=== PATIENT | male | born 1985 ===

== ENCOUNTER 2022-04-19 10:22 | Emergency (ER) | payer OTHER ==
[~2022-04-19] VITALS: Ht 170 cm; Wt 81.6 kg
--- NOTE | 2022-04-19 11:07 | ED Upper Extremity ---
General Chief Complaint: Upper Extremity Nursing Triage Note: PT BROUGHT BY FLIGHT FOLLOWER FOR ASSESSMENT OF LEFT HAND POINTER FINGER. PT WAS PICKING UP A 200LB METAL PIECE AT WORK WHEN IT SLIPPED AND PINCHED HIS FINGER BETWEEN ANOTHER PIECE OF METAL. PT AMB. TO ROOM 07 WITH GAUZE ON FINGER. BLEEDING CONTROLLED. Source: patient Exam Limitations: no limitations History of Present Illness Date Seen by Provider: Apr 19, 2022 Time Seen by Provider: 10:55 Initial Comments 36-year-old male who is otherwise healthy presents for left index finger injury. He states he was picking up a piece of metal when it slipped and pinched his finger between another piece of metal on that. He denies any other injury. He was seen at a walk-in clinic prior to arrival and his tetanus was updated at that time. Allergies and Home Medications Patient Home Medication List Home Medication List Reviewed: Yes Review of Systems Constitutional: no symptoms reported EENTM: no symptoms reported Respiratory: no symptoms reported Cardiovascular: no symptoms reported Gastrointestinal: no symptoms reported Genitourinary: no symptoms reported Musculoskeletal: joint pain Skin: other (Left index finger nail injury) Psychiatric/Neurological: No Symptoms Reported Past Djtwfqu-Suykff-Yfatsc Hx Patient Social History Tobacco Use?: No Substance use?: No Alcohol Use?: No Pt feels they are or have been: No Past Medical History Surgery/Hospitalization HX: DENIES SURGERY AND PMH. Family Medical History Reviewed Nursing Family Hx Physical Exam Vital Signs Vital Signs - First Documented 04/19/22 10:34 Temp 35.2 Pulse 60 Resp 18 B/P (MAP) 136/102 (113) Pulse Ox 97 O2 Delivery Room Air Capillary Refill : Less Than 3 Seconds Height, Weight, BMI Height: '" Weight: lbs. oz. kg; 28.00 BMI Method: General Appearance: WD/WN, no apparent distress Neck: non-tender, supple Cardiovascular: regular rate, rhythm, no murmur Respiratory: chest non-tender, lungs clear, normal breath sounds Wrist: Yes normal inspection, Yes non-tender, Yes no evidence of injury Hand: soft tissue tenderness (Soft tissue tenderness at the distal aspect of the left index finger. At the base of the nail there is an avulsion. No obvious nailbed injury. There is a small lateral laceration to the area, subcentimeter. Neurovascular motor and sensory intact. Tendon function does appear to be intact as well) Neurologic/Psychiatric: alert, normal mood/affect, oriented x 3 Skin: warm/dry Progress/Results/Core Measures Results/Orders My Orders Orders - JOSE MIGUEL THOMAS DO Hand, Left, 3 Views (04/19/22 11:13) Vital Signs/I&O 04/19/22 10:34 Temp 35.2 Pulse 60 Resp 18 B/P (MAP) 136/102 (113) Pulse Ox 97 O2 Delivery Room Air Blood Pressure Mean: 113 Departure Communication (Admissions) Is a very slight avulsion of the proximal end of the nail base. There is no obvious damage to the matrix or nailbed. Neurovascular and sensory intact. X- ray shows fracture of the distal phalanx, tuft fracture. This is a work comp injury. Drug screen performed per protocol and pending. Discharged home with a splint and orthopedic follow-up. Did primary counselor extensively on if there is nailbed injury that was not identified that the nail might not go back he may lose his current nail. He states understanding. Impression Primary Impression: Phalanx, distal fracture of finger Qualified Codes: S62.631B - Displaced fracture of distal phalanx of left index finger, initial encounter for open fracture Disposition: HOME, SELF-CARE Condition: Stable Departure-Patient Inst. Referrals: [facility]/ (PCP) Primary Care Physician Patient Instructions: Finger Fracture ED Add. Discharge Instructions: Keep the splint in place. Follow-up with your doctor as recommended. Your nail may fall off or a new nail may grow underneath and push it off for it may continue to grow is normal. If it does fall off there is a chance that it will not grow back as the area that was avulsed is close to the nailbed matrix which causes nails to grow. Use ibuprofen and Tylenol as needed for pain. Return to the emergency department for any severe concerns. All discharge instructions reviewed with patient and/or family. Voiced understanding. JOSE MIGUEL THOMAS DO Apr 19, 2022 11:07
--- NOTE | 2022-04-19 11:35 | Diagnostic Imaging Report ---
INDICATION: Heavy metal object landing on finger. TECHNIQUE: Three views of the left hand. CORRELATION STUDY: None FINDINGS: Transversely oriented fracture through the distal 2nd tuft is noted. There is diastases along major fracture lines up to 3 mm. Middle and proximal phalanx intact of the index finger. Soft tissue swelling and defect present. Remaining osseous structures and joint spaces are maintained. No radiographic evidence for foreign body. IMPRESSION: 1. Diastases, transversely oriented fracture of the 2nd distal phalanx with associated overlying soft tissue swelling and presumed defect. No radiographic evidence for foreign body. Dictated by: Dictated on workstation # [id number]
[2022-04-19 12:33] VITALS: BP 127/96
== END 2022-04-19 12:30 | disposition home or self-care (01) ==
LOC: ER 10:27
DX: S62.631A Displaced fracture of distal phalanx of left index finger, initial encounter for closed fracture (principal); Z28.311 Partially vaccinated for COVID-19; W23.0XXA Caught, crushed, jammed, or pinched between moving objects, initial encounter; Y92.59 Other trade areas as the place of occurrence of the external cause; Y99.0 Civilian activity done for income or pay
CPT/HCPCS: 73130; 99283; A6223